=== PATIENT | male | born 1935 | race Caucasian/White ===

== ENCOUNTER 2016-08-23 14:24 | Inpatient (IN) | payer OTHER ==
--- NOTE | ~2016-08-23 | HP ---
History And Physical [address] [place]. [address] NAME: PARMJIT PACHECO : 37 STATUS : ADM IN PAT#: [id number] AGE: 81 ADM/REG DATE : 08/23/16 MR#: [id number] REPORT SERV DATE: 08/23/16 DICTATED BY: DEEP STOVER DATE: 08/23/16 REPORT STATUS : Draft TRANSCRIBED BY: MODL DATE: 08/23/16 DATE OF ADMISSION: 08/23/2016 CHIEF COMPLAINT: Fever and chills along with dysuria. HISTORY OF PRESENT ILLNESS: This is an 81-year-old gentleman with history of chronic kidney disease who follows with Dr. Tobias as an outpatient presenting with fever, chills, and dysuria. The patient reports that he had an outpatient ultrasound exam done yesterday morning. The ultrasound exam was done as a routine ordered by Dr. Tobias and the patient was not sure why he had to get the ultrasound because he was doing fine without any symptoms. Strangely after the ultrasound when he returned home, the patient felt very weak. The patient took a short nap and then he woke up with chills and fevers up to 101.8. The patient also had dysuria. The patient called Dr. Tobias's office who referred him to the ER for further evaluation and care. In the ER, the patient was found to be hemodynamically stable. His temperature was 99.9. Initial lab evaluation revealed acute on chronic kidney disease with creatinine of 3, whereas baseline is around 2. The patient, otherwise, had benign electrolytes. The patient's CBC then revealed a white blood cell count of 21.3. The patient's urinalysis was crossed grossly positive for urinary tract infection. Internal Medicine consultation was requested for admission of the patient for further evaluation and care. REVIEW OF SYSTEMS: The patient did have fevers with chills and dysuria. The patient, otherwise, did not have any other focal symptoms. A 14-point review of systems reviewed and negative other than mentioned above. MEDICATIONS: 1. Tylenol 1000 mg p.o. daily. 2. Vitamin C 500 mg p.o. daily. 3. Aspirin 81 mg p.o. daily. 4. Folbee Plus one tablet p.o. daily. 5. Lotensin 20 mg p.o. b.i.d. 6. Caltrate 600 mg p.o. daily. 7. Coreg 12.5 mg p.o. b.i.d. 8. Lofibra 54 mg p.o. daily. 9. Loperamide 2 mg p.o. daily. 10.Fish oil 1000 mg p.o. b.i.d. 11.Prilosec 20 mg p.o. b.i.d. 12.Zocor 20 mg p.o. q.h.s. 13.Vitamin E 400 units p.o. daily. 14.Garlic 100 mg p.o. daily. 15.Magnesium and vitamin D3 one capsule p.o. daily. 16.Polysporin topically to the skin sores. 17.Konsyl Psyllium 10 capsules p.o. twice daily, over the counter. History And Physical [address] [address] NAME: PARMJIT PACHECO : 37 STATUS : ADM [facility]#: [id number] AGE: 81 ADM/REG DATE : 08/23/16 MR#: [id number] REPORT SERV DATE: 08/23/16 DICTATED BY: DEEP STOVER DATE: 08/23/16 REPORT STATUS : Draft TRANSCRIBED BY: RONDA DATE: 08/23/16 ALLERGIES: 1. PAXIL. 2. PROZAC. 3. ZOLOFT. 4. LEXAPRO. PAST MEDICAL HISTORY: 1. Chronic kidney disease, for which he follows with Dr. Tobias. 2. Hypertension. 3. Hyperlipidemia. 4. History of TIA. PAST SURGICAL HISTORY: Partial colectomy x2 for polyps. FAMILY HISTORY: Colon cancer in both mom and dad. SOCIAL HISTORY: The patient does not smoke, drink alcohol, or use any illicit drugs. The patient lives at home with his . The patient's grandson was at bedside in the ER. PHYSICAL EXAMINATION: VITAL SIGNS: Temperature 99.9, blood pressure 188/75, pulse 80, respiratory rate is 16, and saturating 97% on room air. GENERAL: The patient is alert and oriented x3 with no focal neurologic deficits. The patient is awake, does not appear to be in acute distress, and he is cooperative. NECK: No JVD. No lymphadenopathy. Normal thyroid. CHEST: No midline sternotomy scar and no tenderness to palpation/ LUNGS: Clear to auscultation bilaterally with normal respiratory effort on room air. CARDIOVASCULAR: Regular rate and rhythm with no murmurs, rubs, or gallops, and PMI is nondisplaced. ABDOMEN: Soft and nontender with active bowel sounds and no organomegaly. EXTREMITIES: No edema. Normal distal pulses. No calf tenderness. SKIN: Clean, dry, warm, and intact. LABORATORY DATA: Sodium is 142, potassium 4.7, chloride 108, BUN 31, creatinine 3.0, glucose 160, and calcium 8.9. White blood cell count is 21.3, hemoglobin is 12.1, and platelets 173. Chest x-ray showed a stable COPD changes and urinalysis showed moderate leukocyte esterase, negative for nitrite, greater than 182 white blood cells, and many white blood cell clumps. ASSESSMENT: This is an 81-year-old gentleman with history of chronic kidney disease, presenting with a urinary tract infection. 1. Urinary tract infection, meeting sepsis criteria. 2. Acute kidney injury on chronic kidney disease, the patient's creatinine is 3 today and his baseline appears to be around 2. 3. Hypertension. 4. Hyperlipidemia. 5. Transient ischemic attack. History And Physical [address] [address] NAME: PARMJIT PACHECO : 37 STATUS : ADM IN PAT#: [id number] AGE: 81 ADM/REG DATE : 08/23/16 MR#: [id number] REPORT SERV DATE: 08/23/16 DICTATED BY: DEEP STOVER DATE: 08/23/16 REPORT STATUS : Draft TRANSCRIBED BY: MODL DATE: 08/23/16 6. Questionable chronic obstructive pulmonary disease based on chest x-ray exams. PLAN: My plan is to admit the patient under telemetry monitoring. The patient will be given IV fluid resuscitation. I will follow up on urine cultures and the patient will be empirically started on IV Rocephin. I will also check procalcitonin level and follow serial labs to include CBC, electrolytes, and renal function. In's and out's will also be closely monitored. I will also follow up on the renal ultrasound that was apparently performed yesterday. Otherwise, for the rest of stable past medical conditions, including hypertension, hyperlipidemia, et al, I will continue home medications. Standard DVT prophylaxis. The patient is full code at this time. YSC/MODL Deep Stover MD / [id number] CC: Elizabeth Burks M.D. Nathan Chamberlain, M.D.
--- NOTE | ~2016-08-23 | DS ---
Discharge Summary [facility] [address] [place]. [address] NAME: PARMJIT PACHECO : 37 STATUS : DIS IN PAT#: [id number] AGE: 81 ADM/REG DATE : 08/23/16 MR#: [id number] REPORT SERV DATE: 08/27/16 DICTATED BY: KIKO VICKERS DATE: 08/26/16 REPORT STATUS : Draft TRANSCRIBED BY: MODL DATE: 08/26/16 ADMISSION DATE: 08/23/2016 DISCHARGE DATE: 08/26/2016 PRINCIPAL DIAGNOSIS: Sepsis due to Escherichia coli, urinary tract infection with pyelonephritis and evident prostatitis. SECONDARY DIAGNOSES: Hypertension uncontrolled, acute kidney injury with chronic kidney disease stage IV, chronic obstructive pulmonary disease. HISTORY OF PRESENT ILLNESS: Please see Dr. Deep Basilio's dictation on 08/23/2016. HOSPITAL COURSE: Admitted with sepsis with leukocytosis, fever, UTI. The patient had left costovertebral angle tenderness consistent with pyelonephritis. The patient received antibiotics with rapid resolution of his leukocytosis and temperature. He felt better after IV fluids and cessation of his MAHENDRA inhibitor. He had improvement in his creatinine from 3 down to 2. As the patient's white count decreased, he actually had increased amount of bladder outlet symptoms. He had no urinary retention at admission, but had 100 mL of urinary retention with ongoing bladder outlet symptoms. This was actually felt to be due to acute prostatitis given the clinical scenario. Sloan cota consulted with a urologist who agreed this sounded like acute prostatitis and a three-week course of oral ciprofloxacin would be indicated in addition to alpha blockade such as with Hytrin. His Lotensin was resumed only at 20 mg once a day, Hytrin 2 mg at bedtime, Cipro 250 b.i.d. for three weeks. Follow with Dr. Bradley Oreilly in one to two weeks. He was also given Pyridium to take p.r.n., other medicines such as his vitamins, low-fiber, daily aspirin. Could continue carvedilol, Zocor. ELI/RONDA Kiko Vickers M.D. / [id number] CC: Elizabeth Burks M.D.
[~2016-08-23 14:24] MED LIST: COREG12 PO; LIPOTRIAD1 CAP PO; LOFIBRA54 MG PO; PRILO PO; VITC500 PO; ZOCOR20 PO
[2016-08-23 15:08] LABS: BASOPHILS 0 %; BASOPHILS ABSOLUTE 0.01 10/3/uL (0.0-0.16); EOSINOPHILS 0 %; HEMATOCRIT 39.1 % (40.0-51.0); HEMOGLOBIN 12.1 g/dL (13.6-17.8); IMMATURE GRANULOCYTES 0.3 %; IMMATURE GRANULOCYTES ABSOLUTE 0.07 10/3/uL (0.0-0.11); LYMPHOCYTES 6.1 %; LYMPHOCYTES ABSOLUTE 1.31 10/3/uL (0.67-4.30); MEAN CORPUSCULAR HEMOGLOB 29.7 pg (26.0-34.0); MEAN PLATELET VOLUME 11.6 fL (9.2-13.0); MONOCYTES 5.8 %; MONOCYTES ABSOLUTE 1.23 10/3/uL (0.21-1.20); NEUTROPHILS 87.8 %; NEUTROPHILS ABSOLUTE 18.71 10/3/uL (2.02-8.40); PLATELET COUNT 173 10/3/uL (150-400); RED CELL COUNT 4.07 10/6/uL (4.7-6.1)
[2016-08-23 15:09] LABS: WHITE BLOOD CELLS 21.3 10/3/uL (4.5-10.5)
[2016-08-23 15:10] LABS: MANUAL DIFF NO %; MEAN CORPUS HGB CONC 30.9 g/dL (32.0-36.0); MEAN CORPUSCULAR VOLUME 96.1 fL (80-100)
[2016-08-23 15:23] LABS: A/G RATIO 0.8 (0.7-1.9); ALBUMIN 3.7 G/DL (3.5-5.0); ALKALINE PHOSPHATASE 47 U/L (45-117); CALCIUM, SERUM 8.9 MG/DL (8.5-10.4); CHLORIDE, SERUM 108 MMOL/L (96-112); CO2 (CARBON DIOXIDE) 26 MMOL/L (24-34); GLUCOSE, SERUM 116 MG/DL (60-99); POTASSIUM, SERUM 4.7 MMOL/L (3.5-5.3); SGOT(AST) 15 U/L (5-40); SGPT(ALT) 14 U/L (5-65); SODIUM, SERUM 142 MMOL/L (135-148); TOTAL BILIRUBIN 0.7 MG/DL (0-1.2); TOTAL PROTEIN 8.2 G/DL (6.0-8.5)
[2016-08-23 15:25] LABS: BUN (BLOOD UREA NITROGEN) 31 MG/DL (6-23); GFR AFRICAN AMERICAN 22 ML/MIN (>=60); GFR NON AFRICAN AMERICAN 19 ML/MIN (>=60); GLOBULIN 4.5 G/DL (2.5-4.1)
[2016-08-23 18:00] LABS: ASCORBIC ACID (UR NOT ORDER) 40 (NEG); BILIRUBIN, URINE NEGATIVE (NEG); ER URINALYSIS TAT 0 Hrs 12 Mins; KETONE, URINE TRACE MG/DL (NEG); LEUKOCYTE ESTERASE(NOT OR MOD (NEG); NITRITE (URINE) NEG (NEG)
[2016-08-23 18:06] LABS: WBC (NOT ORDERED) (RFLEX) > 182 (0-5)
[2016-08-23] MEDS ORDERED: ACET500CAP PO (18:38)
[2016-08-23] MEDS ORDERED: FISH-EPA1000 MG PO (18:38)
[2016-08-23] MEDS ORDERED: ASAB PO (18:39)
[2016-08-23] MEDS ORDERED: FOLBEE PLU1 (18:39)
[2016-08-23] MEDS ORDERED: CHOLECALCIFEROL PO (18:40)
[2016-08-23] MEDS ORDERED: GARLIC PO (18:40)
[2016-08-23] MEDS ORDERED: MAGNESIUM PO (18:40)
[2016-08-23] MEDS ORDERED: VITE PO (18:41)
[2016-08-23] MEDS ORDERED: CALTRA600D PO (18:41)
[2016-08-23] MEDS ORDERED: POLYSPORIN TOP (18:42)
[2016-08-23] MEDS ORDERED: VITC500 PO (18:42)
[2016-08-23] MEDS ORDERED: [UNRECOGNIZED DRUG - OTHER] PO (18:43)
[2016-08-23] MEDS ORDERED: PSYLLIUM PO (18:43)
[2016-08-23] MEDS ORDERED: LOTE20 PO (18:44)
[2016-08-23] MEDS ORDERED: PRILO PO (18:44)
[2016-08-23] MEDS ORDERED: DIAMODE2 MG PO (18:44)
[2016-08-23] MEDS ORDERED: COREG12 PO (18:45)
[2016-08-23] MEDS ORDERED: LOFIBRA54 MG PO (18:45)
[2016-08-23] MEDS ORDERED: ZOCOR20 PO (18:45)
[2016-08-23 22:07] LABS: PROCALCITONIN 1.57 ng/mL (<0.5)
[2016-08-24 06:30] LABS: BASOPHILS 0.1 %; BASOPHILS ABSOLUTE 0.02 10/3/uL (0.0-0.16); EOSINOPHILS 0 %; HEMOGLOBIN 10.2 g/dL (13.6-17.8); IMMATURE GRANULOCYTES 0.3 %; IMMATURE GRANULOCYTES ABSOLUTE 0.07 10/3/uL (0.0-0.11); LYMPHOCYTES 7.3 %; LYMPHOCYTES ABSOLUTE 1.56 10/3/uL (0.67-4.30); MEAN CORPUSCULAR HEMOGLOB 31.5 pg (26.0-34.0); MEAN CORPUSCULAR VOLUME 96.6 fL (80-100); MEAN PLATELET VOLUME 11.7 fL (9.2-13.0); MONOCYTES 4.4 %; MONOCYTES ABSOLUTE 0.95 10/3/uL (0.21-1.20); NEUTROPHILS 87.9 %; NEUTROPHILS ABSOLUTE 18.78 10/3/uL (2.02-8.40); PLATELET COUNT 129 10/3/uL (150-400); RBC DISTRIBUTION WIDTH 13.9 % (12.0-16.0); WHITE BLOOD CELLS 21.4 10/3/uL (4.5-10.5)
[2016-08-24 06:31] LABS: HEMATOCRIT 31.3 % (40.0-51.0); MANUAL DIFF NO %; MEAN CORPUS HGB CONC 32.6 g/dL (32.0-36.0); RED CELL COUNT 3.24 10/6/uL (4.7-6.1)
[2016-08-24 06:47] LABS: BUN (BLOOD UREA NITROGEN) 34 MG/DL (6-23); CALCIUM, SERUM 8.1 MG/DL (8.5-10.4); CHLORIDE, SERUM 114 MMOL/L (96-112); CO2 (CARBON DIOXIDE) 22 MMOL/L (24-34); GFR AFRICAN AMERICAN 25 ML/MIN (>=60); GFR NON AFRICAN AMERICAN 21 ML/MIN (>=60); GLUCOSE, SERUM 106 MG/DL (60-99); PHOSPHORUS, SERUM 2.2 MG/DL (2.5-4.5); POTASSIUM, SERUM 4.4 MMOL/L (3.5-5.3); SODIUM, SERUM 145 MMOL/L (135-148)
[2016-08-24 06:52] LABS: ALBUMIN 2.9 G/DL (3.5-5.0)
[2016-08-25 07:18] LABS: BASOPHILS 0.2 %; BASOPHILS ABSOLUTE 0.02 10/3/uL (0.0-0.16); EOSINOPHILS 0.7 %; EOSINOPHILS ABSOLUTE 0.08 10/3/uL (0.0-0.53); HEMATOCRIT 29.5 % (40.0-51.0); HEMOGLOBIN 9.5 g/dL (13.6-17.8); IMMATURE GRANULOCYTES 0.2 %; IMMATURE GRANULOCYTES ABSOLUTE 0.02 10/3/uL (0.0-0.11); LYMPHOCYTES 13.5 %; LYMPHOCYTES ABSOLUTE 1.52 10/3/uL (0.67-4.30); MEAN CORPUS HGB CONC 32.2 g/dL (32.0-36.0); MEAN CORPUSCULAR HEMOGLOB 30.9 pg (26.0-34.0); MEAN CORPUSCULAR VOLUME 96.1 fL (80-100); MEAN PLATELET VOLUME 11.3 fL (9.2-13.0); MONOCYTES 5.9 %; MONOCYTES ABSOLUTE 0.66 10/3/uL (0.21-1.20); NEUTROPHILS 79.5 %; NEUTROPHILS ABSOLUTE 8.93 10/3/uL (2.02-8.40); PLATELET COUNT 126 10/3/uL (150-400); RBC DISTRIBUTION WIDTH 13.7 % (12.0-16.0); RED CELL COUNT 3.07 10/6/uL (4.7-6.1)
[2016-08-25 07:19] LABS: MANUAL DIFF NO %; WHITE BLOOD CELLS 11.2 10/3/uL (4.5-10.5)
[2016-08-25 07:37] LABS: ALKALINE PHOSPHATASE 41 U/L (45-117); CALCIUM, SERUM 8.2 MG/DL (8.5-10.4); CHLORIDE, SERUM 112 MMOL/L (96-112); CO2 (CARBON DIOXIDE) 24 MMOL/L (24-34); CREATININE 2.25 MG/DL (0.70-1.30); GFR AFRICAN AMERICAN 31 ML/MIN (>=60); GFR NON AFRICAN AMERICAN 27 ML/MIN (>=60); GLUCOSE, SERUM 109 MG/DL (60-99); POTASSIUM, SERUM 4.5 MMOL/L (3.5-5.3); SGOT(AST) 21 U/L (5-40); SGPT(ALT) 15 U/L (5-65); SODIUM, SERUM 144 MMOL/L (135-148); TOTAL BILIRUBIN 0.4 MG/DL (0-1.2)
[2016-08-25 07:39] LABS: A/G RATIO 0.6 (0.7-1.9); ALBUMIN 2.3 G/DL (3.5-5.0); BUN (BLOOD UREA NITROGEN) 28 MG/DL (6-23); GLOBULIN 3.7 G/DL (2.5-4.1)
[2016-08-25 16:20] LABS: % IRON SAT 8 % (20-50); FERRITIN 186 NG/ML (26-388); IRON BINDING CAPACITY 220 MCG/DL (250-450); IRON, SERUM 17 MCG/DL (35-150)
[2016-08-26 04:29] LABS: BUN (BLOOD UREA NITROGEN) 28 MG/DL (6-23); CALCIUM, SERUM 8.4 MG/DL (8.5-10.4); CHLORIDE, SERUM 109 MMOL/L (96-112); CO2 (CARBON DIOXIDE) 23 MMOL/L (24-34); CREATININE 2.13 MG/DL (0.70-1.30); GFR AFRICAN AMERICAN 33 ML/MIN (>=60); GFR NON AFRICAN AMERICAN 28 ML/MIN (>=60); GLUCOSE, SERUM 109 MG/DL (60-99); POTASSIUM, SERUM 4.1 MMOL/L (3.5-5.3); SODIUM, SERUM 142 MMOL/L (135-148)
[2016-08-26 04:43] LABS: BASOPHILS 0.2 %; BASOPHILS ABSOLUTE 0.02 10/3/uL (0.0-0.16); EOSINOPHILS 1.8 %; EOSINOPHILS ABSOLUTE 0.15 10/3/uL (0.0-0.53); HEMOGLOBIN 9.5 g/dL (13.6-17.8); IMMATURE GRANULOCYTES 0.2 %; IMMATURE GRANULOCYTES ABSOLUTE 0.02 10/3/uL (0.0-0.11); LYMPHOCYTES 17.7 %; LYMPHOCYTES ABSOLUTE 1.47 10/3/uL (0.67-4.30); MEAN CORPUS HGB CONC 32.8 g/dL (32.0-36.0); MEAN CORPUSCULAR HEMOGLOB 30.6 pg (26.0-34.0); MEAN CORPUSCULAR VOLUME 93.5 fL (80-100); MEAN PLATELET VOLUME 12.1 fL (9.2-13.0); MONOCYTES 5.3 %; MONOCYTES ABSOLUTE 0.44 10/3/uL (0.21-1.20); NEUTROPHILS 74.8 %; NEUTROPHILS ABSOLUTE 6.22 10/3/uL (2.02-8.40); RBC DISTRIBUTION WIDTH 13.5 % (12.0-16.0); WHITE BLOOD CELLS 8.3 10/3/uL (4.5-10.5)
[2016-08-26 04:45] LABS: MANUAL DIFF NO %; PLATELET COUNT 182 10/3/uL (150-400)
[2016-08-26] MEDS ORDERED: PYR200 PO (09:57)
[2016-08-26] MEDS ORDERED: HYT2 PO (09:57)
[2016-08-26] MEDS ORDERED: CIP2 PO (09:57)
== END 2016-08-26 11:22 | disposition home or self-care (01) | DRG 872 ==
LOC: ER 14:24 → 4SO 19:14
PROVIDERS: Emergency Medicine; Internal Medicine
DX: A41.51 Sepsis due to Escherichia coli [E. coli] (principal); N17.9 Acute kidney failure, unspecified; N18.4 Chronic kidney disease, stage 4 (severe); N39.0 Urinary tract infection, site not specified; D63.1 Anemia in chronic kidney disease; N12 Tubulo-interstitial nephritis, not specified as acute or chronic; N41.0 Acute prostatitis; R65.20 Severe sepsis without septic shock; I12.9 Hypertensive chronic kidney disease with stage 1 through stage 4 chronic kidney disease, or unspecified chronic kidney disease; E78.5 Hyperlipidemia, unspecified; J42 Unspecified chronic bronchitis; Z88.8 Allergy status to other drugs, medicaments and biological substances; Z79.82 Long term (current) use of aspirin; Z86.73 Personal history of transient ischemic attack (TIA), and cerebral infarction without residual deficits; N40.1 Benign prostatic hyperplasia with lower urinary tract symptoms; R33.8 Other retention of urine
CPT/HCPCS: 71020; 80048; 80053; 80069; 81001; 82728; 83540; 83550; 83605; 84145; 85025; 87040; 87077; 87086; 87186; 93005; 96374; 99285; A9270-GY; J0360